=== PATIENT | female | born 1990 | race Caucasian/White ===

== ENCOUNTER 2017-02-04 16:33 | Emergency (ER) | payer OTHER ==
[2017-02-04 16:46] VITALS: BP 112/60
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
[2017-02-04] MEDS ORDERED: Naproxen TAB* 250 MG PO ONE (16:56)
--- NOTE | 2017-02-04 17:29 | RAD ---
INDICATION: Left foot injury. TECHNIQUE: 3 views of the left foot were obtained. FINDINGS: There is a surgical screw in the distal third metatarsal. There is slight increased space between the medial and intermediate cuneiform bones. The bones are otherwise in normal alignment. No fracture is seen. IMPRESSION: THERE IS SUGGESTION OF MILD INCREASED SPACE BETWEEN THE MEDIAL AND INTERMEDIATE CUNEIFORM BONES SUGGESTING THE POSSIBILITY OF A MIDFOOT LIGAMENTOUS INJURY. IF THIS IS THE REGION OF THE PATIENT'S PAIN RECOMMEND A FOLLOW-UP MRI OF THE FOOT WITHOUT CONTRAST.
== END 2017-02-04 18:03 | disposition home or self-care (01) ==
LOC: UCCORT 16:33
DX: S99.922A Unspecified injury of left foot, initial encounter (principal); V86.52XA Driver of snowmobile injured in nontraffic accident, initial encounter; Y93.89 Activity, other specified; Y92.9 Unspecified place or not applicable; Z88.0 Allergy status to penicillin; F17.210 Nicotine dependence, cigarettes, uncomplicated
CPT/HCPCS: 99213; A9270-GY; G0463

== ENCOUNTER 2018-02-16 09:11 | Emergency (ER) | payer SELFPAY ==
--- NOTE | 2018-02-16 10:49 | UC ---
Respiratory Complaint HPI - HPI Summary HPI Summary: 27 year old female with URI Sx . Sinus congestion since 02/13/18 and worsening. Head, ear and body aches reported. 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 her bodyaches started about 40 hours ago . [ End ] - History of Current Complaint Chief Complaint: UCRespiratory Stated Complaint: ACHEY, SINUSES Time Seen by Provider: 02/16/18 10:38 Hx Obtained From: Patient Hx Last Menstrual Period: 3 yrs Onset/Duration: Gradual Onset Timing: Constant Severity Initially: Moderate Severity Currently: Moderate Pain Intensity: 0 Character: Cough: Nonproductive - Allergies/Home Medications Allergies/Adverse Reactions: Allergies Allergy/AdvReac Type Severity Reaction Status Date / Time Penicillins Allergy Unknown Verified 02/16/18 09:47 Reaction Details- strong family hx Home Medications: Home Medications Aspirin/Acetaminophen/Caffeine [Excedrin Migraine Caplet] 1 each PO BID PRN [History Confirmed 02/16/18] PMH/Surg Hx/FS Hx/Imm Hx Previously Healthy: Yes - Surgical History Surgical History: Yes Surgery Procedure, Year, and Place: tubal ligation, appendectomy, uterine ablation, wire removed from right leg due to injury; b/l foot - Family History Known Family History: Positive: Cardiac Disease, Hypertension, Diabetes, Respiratory Disease - Social History Occupation: Employed Full-time Lives: With Family Alcohol Use: Rare Substance Use Type: None Smoking Status (MU): Light Every Day Tobacco Smoker Type: Cigarettes, Smokeless Tobacco Amount Used/How Often: 1/4 PPD and <1/4 can per day Length of Time of Smoking/Using Tobacco: 12 Years Have You Smoked in the Last Year: Yes Household Exposure Type: Cigarettes Cessation Counseling: Patient Advised to Stop - Immunization History Most Recent Influenza Vaccination: Not the 2016/2017 Season Most Recent Tetanus Shot: unknown Review of Systems Constitutional: Fatigue ENT: Sore Throat, Nasal Discharge, Sinus Congestion, Sinus Pain/Tenderness Musculoskeletal: Myalgia Is Patient Immunocompromised?: No All Other Systems Reviewed And Are Negative: Yes Physical Exam Triage Information Reviewed: Yes Appearance: Well-Appearing, No Pain Distress, Well-Nourished Vital Signs: Initial Vital Signs Temp 99.1 F 02/16/18 09:52 Pulse 73 02/16/18 09:52 Resp 18 02/16/18 09:52 Pulse Ox 100 02/16/18 09:52 Vital Signs Reviewed: Yes Eye Exam: Normal ENT Exam: Normal Dental Exam: Normal Neck exam: Normal Neck: Positive: 1 Respiratory Exam: Normal Cardiovascular Exam: Normal Musculoskeletal Exam: Normal Neurological Exam: Normal Psychological Exam: Normal Skin Exam: Normal UC Diagnostic Evaluation - Laboratory O2 Sat by Pulse Oximetry: 100 Respiratory Course/Dx - Course Course Of Treatment: neg flu - Differential Dx/Diagnosis Differential Diagnosis/HQI/PQRI: Influenza, Lower Resp Infection, Sinusitis Provider Diagnoses: URI Viral Discharge - Sign-Out/Discharge Documenting (check all that apply): Discharge - Discharge Plan Condition: Good Disposition: HOME Patient Education Materials: Upper Respiratory Infection (ED) Forms: *Work Release Referrals: ARACELI Shah [Primary Care Provider] - If Needed - Billing Disposition and Condition Condition: GOOD Disposition: HOME
== END 2018-02-16 11:46 | disposition home or self-care (01) ==
LOC: UCCORT 09:11
DX: J06.9 Acute upper respiratory infection, unspecified (principal); F17.210 Nicotine dependence, cigarettes, uncomplicated; F17.290 Nicotine dependence, other tobacco product, uncomplicated; Z88.0 Allergy status to penicillin
CPT/HCPCS: 87502; 99211; G0463

== ENCOUNTER 2019-11-18 14:10 | Emergency (ER) | payer OTHER ==
[2019-11-18 15:08] VITALS: BP 112/63
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
== END 2019-11-18 16:10 | disposition home or self-care (01) ==
LOC: UCCORT 14:10
DX: M77.9 Enthesopathy, unspecified (principal); F17.210 Nicotine dependence, cigarettes, uncomplicated; Z88.0 Allergy status to penicillin
CPT/HCPCS: 99213; G0463